=== PATIENT | male | born 2000 | race African-American/Black ===

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

== ENCOUNTER → 2020-03-26 | Outpatient (CLI) | payer OTHER ==
--- NOTE | 2020-03-26 14:43 | RADIOLOGY REPORT (SQ) ---
EXAM DESCRIPTION: DUPLEX ART/KATHY FLOW COMPLETE IMAGES COMPLETED DATE/TIME: 03/26/2020 10:50 am REASON FOR STUDY: VEE (I70.1) I70.1 ATHEROSCLEROSIS OF RENAL ARTERY COMPARISON: Doppler from 11/14/2019. TECHNIQUE: Realtime and static grayscale images acquired. Selected color Doppler, velocities and spe ctral images recorded. LIMITATIONS: None. FINDINGS: RIGHT KIDNEY: RENAL ARTERY VELOCITIES: 158 cm/sec. Segmental artery velocity 112 cm/sec. RENAL VEIN: Color doppler flow present, patent. VELOCITY RATIO: 1.82. Normal waveforms. KIDNEY: Normal size. No hydronephrosis. LEFT KIDNEY: RENAL ARTERY VELOCITIES: 167 cm/sec. Segmental artery velocity 105 cm/sec. RENAL VEIN: Color doppler flow present, patent. VELOCITY RATIO: 1.92. Normal waveforms. KIDNEY: Normal size. No hydronephrosis. BLADDER: Normal. OTHER: No other finding. IMPRESSION: NO DOPPLER EVIDENCE OF HEMODYNAMICALLY SIGNIFICANT RENAL ARTERY STENOSIS. COMMENT: NORMAL RENAL ARTERY/AORTA VELOCITY RATIO IS LESS THAN OR EQUAL TO 3.5. TECHNICAL DOCUMENTATION: JOB ID: [id number] 2010 [employer]- All Rights Reserved Reading location - IP/workstation name: [email or web address]
== END ==
LOC: RAD 08:34
PROVIDERS: ATTEND Internal Medicine Clinical Cardiac Electrophysiology
DX: I70.1 Atherosclerosis of renal artery (principal)
CPT/HCPCS: 93975